=== PATIENT | female | born 1950 | race Caucasian/White ===

== ENCOUNTER 2021-12-09 05:56 | Day surgery (SDC) | payer MEDICARE, SELFPAY ==
[2021-12-01 09:11] LABS: Hematocrit 44.9 % (37-47); Hemoglobin 14.8 g/dL (12.0-15.0); Mean Corpuscular Hgb 32.1 pg (27.0-32.0); Mean Corpuscular Volume 97.4 fL (81-99); Mean Platelet Vol. 9.8 fl (6.2-12.0); Platelet Count 242 K/mm3 (150-450); RBC Distribution Width CV 12.7 % (11.6-14.6); RBC Distribution Width SD 45.3 fl (35.1-43.9); Red Blood Count 4.61 M/mm3 (4.2-5.4)
[2021-12-01 09:17] LABS: Prothrombin Time (Protime)PT. 12.5 SECONDS (11.7-14.9)
[2021-12-01 09:18] LABS: Partial Thromboplast Time 26.4 Seconds (24.1-36.2)
[2021-12-01 09:45] LABS: Anion Gap 5 (5-15); BUN 20 mg/dL (7-18); BUN/Creat Ratio 24.5 RATIO (10-20); Calcium,Total 9.4 mg/dL (8.5-10.1); Chloride 104 mmol/L (98-107); Creatinine, Serum 0.82 mg/dL (0.55-1.02); EST Glomerular Filtration Rate 73 mL/min (>60); Est Glom Filt Rate - Afr Amer 88 mL/min (>60); Glucose 95 mg/dL (74-106); Sodium Level 139 mmol/L (136-145); Thyroid Stim Hormone (TSH) 1.93 uIU/mL (0.358-3.74)
[2021-12-09] VITALS (7 sets, daily range): BP systolic 111–162; BP diastolic 33–76; PULSE 62–89; RESP 16–18; TEMP 36.2–36.7; O2SAT 92–98; BMI 29.4
--- NOTE | 2021-12-09 | IMM_PTH ---
PATIENT: BARBI RAMIREZ LOC: [facility] [place] U#:[id number] AGE/SX: 71/F ROOM: RE12/09/[address]: Dr. Craig Ordoñez DO : 1950 BED: DIS: 12/09/2021 SPEC #: [id number] RECD: 12/10/21 12:34 STATUS: JAVIER REQ #: [id number] HARIS: 12/09/21 00:[address]: Craig Ordoñez DEPT: IMMUNOHISTOCHEMISTRY RECD BY: Luisa Campos ENTERED: 12/10/21 12:36 SP TYPE: IMMUNO OTHR DR: Dr. Craig Parmar MD Tissues: Vertebra, NOS Procedures: SMA (add) CD34 (add) DESMIN (add) ODALIS (add) MACRO (add) P53 (add) Vimentin (add) Pankeratin (initial) PHYSICIAN & INSTITUTION [place] [id number] SPECIMEN INFORMATION: Tissue Source: Extradural soft tissue mass, L5-S1, biopsy Clinical Info: Spinal stenosis lumbar region, spondylosis with radiculopathy, inflammatory spondylopathy Specimen Number: [id number] CPT code: 02813, 09263 x7 METHODOLOGY: Deparaffinized sections of prefer/formalin-fixed tissue or PAP/DQ stained slides are incubated with monoclonal/polyclonal antibodies/oligonucleotide probes. Localization is made via biotin free immunoperoxidase method. Appropriate controls are performed and reacted as expected. Results on target cell population are indicated in the following table: RESULTS: ANTIBODY / CLONE RESULT AE1-3 (AE1/AE3/PCK26) negative Vimentin (V9) positive CD34 (QBEnd-10) negative Macro (HAM-56) positive, focal Actin (1A4) negative Desmin (CE-R-11) negative ODALIS (E29) negative P53 (DO-7) negative These tests were developed and their performance characteristics determined by [facility]. They may not have been cleared or approved by the U.S. Food and Drug Administration. The FDA has determined that such clearance or approval is not necessary. The above immunohistochemical/dualISH markers are ordered and reviewed by the Pathologist. INTERPRETATION: Extradural soft tissue mass, L5-S1, biopsy: Benign fibrous tissue. AM:annalisa 12/13/2021
[2021-12-09] MEDS: Lactated Ringers 1,000 ML 15 ML IV (06:15)
--- NOTE | 2021-12-09 07:30 | MASS_PTH ---
PATIENT: BARBI RAMIREZ LOC: [facility] [place] U#:[id number] AGE/SX: 71/F ROOM: RE12/09/[address]: Dr. Craig Ordoñez DO : 1950 BED: DIS: 12/09/2021 SPEC #: [id number] RECD: 12/09/21 10:15 STATUS: JAVIER RECandi #: [id number] HARIS: 12/09/21 07:[address]: Craig Ordoñez DEPT: SURGICAL PATHOLOGY RECD BY: Ariane Moody ENTERED: 12/09/21 11:30 SP TYPE: Mass OTHR DR: Dr. Craig Parmar MD Tissues: CYST Procedures: Surgery Specimen Level V HEADER OPERATION: Lumbar 5 laminectomy decompression, excision of L5-S1 facet PRE-OP DIAGNOSIS: Spinal stenosis lumbar region, spondylosis with radiculopathy, intervertebral disc degeneration, inflammatory spondylopathy, spondylolisthesis TISSUE SUBMITTED: Extradural mass, probable L5-S1 facet cyst MICROSCOPIC DIAGNOSIS Extradural soft tissue mass, L5-S1, biopsy: Fragments of fibrous tissue with benign histiocytic reaction and mild chronic inflammation. Focal fibrinoid material. No evidence of malignancy. See comment. AM:annalisa 12/10/2021 COMMENT Immunohistochemistry ([id number]) supports the above diagnosis. MICROSCOPIC DESCRIPTION Slides are reviewed. GROSS DESCRIPTION Received in fixative is one container labeled with the patient's name and designated extradural mass, probable L5-S1 facet cyst. The specimen consists of multiple irregular fragments of nur-pink soft tissue that in aggregate measure 0.7 x 0.9 x 0.2 cm. The specimen is totally submitted in one cassette. / SJ:annalisa 12/09/2021 TC:5 CPT: 82138
--- NOTE | 2021-12-09 07:30 | RAD_ITS ---
PROCEDURE: Localization for laminectomy. DATE OF EXAMINATION: 12/09/2021. INDICATION: Female, 71 years old. Laminectomy. 2 intraoperative images were obtained. RAD/Spine 1 View Any Level IMPRESSION: Intraoperative imaging provided for localization. The localization instrument is at the L5-S1 level. Electronically Signed: Manuel Jacques MD at 10:12 EST ,
[2021-12-09] MEDS: Cefazolin 2 GM in 0.9% Normal Saline 100 ML IV (07:56)
[2021-12-09] MEDS: THROMBIN (RECOMBINANT) 20,000 UNIT VIAL 20000 UNIT TOPICAL (08:00)
--- NOTE | 2021-12-09 08:00 | PCM.OPRPT ---
Problems Associated Problem List Diagnoses (1) Lumbar stenosis: Report of Operation Date of Procedure: 12/09/21 Pre-Operative Diagnosis: 1. Lumbar stenosis L5-S1 with spondylosis 2. Left L5-S1 facet cyst Post-Operative Diagnosis: 1. Lumbar stenosis L5-S1 with spondylosis 2. Left L5-S1 facet cyst Surgery/Procedure Performed:: 1. L5 laminectomy decompression 2. Bilateral L5-S1 foraminotomies 3. Excision of extradural mass, left L5-S1 facet cyst Description of Surgical Findings:: The patient is a 71-year-old female with intractable back and leg pain. Image studies confirm the above diagnosis. She has failed conservative treatment to include medication, physical therapy and injections. The patient opted for operative intervention understanding the risks to include but not limited to infection, bleeding, damage to nerves arteries and veins, possibility of spinal fluid leak, continued pain, need for further surgery, deep vein thrombosis, pulmonary embolism, heart attack, stroke or . The patient was identified in the preoperative holding area. There she received preoperative IV antibiotics Ancef and was then transferred to the operative suite. Once in the operative suite after general endotracheal anesthesia was established the patient was transferred to the [facility] operating table in the prone position. All bony prominences were padded accordingly. The lumbar spine was prepped and draped in a standard surgical fashion. A midline incision was made and taken down to the level of the lumbodorsal fascia. The fascia was then divided and subperiosteal dissection was taken down to the level of the bilateral L5-S1 facet joints. Deep retractors were placed. A bone scalpel was used to make laminotomy cuts bilaterally at L5. Then a series of rongeurs and Kerrisons was used to remove the spinous process and lamina of L5. At this point bilateral foraminotomies were performed using a Kerrison. A large extradural mass was noted at the left L5-S1 facet joint. This was excised and sent to pathology. All bleeding was well controlled. The wound was thoroughly irrigated with normal saline solution. Tisseel was placed over the dura as a hemostatic agent. The fascia was closed with #1 Vicryl, subcutaneous with 2-0 Vicryl, and skin with 2-0 nylon. A sterile dressing was applied with 4 x 4's ABD and tape. Sponge instrument needle counts were correct at the end of the case. The patient was extubated and taken to the PACU without incident. Surgeon: Craig Ordoñez Type of Anesthesia: General Specimen's removed: Extradural mass, left L5-S1 facet cyst Drains: None Estimated Blood Loss (mL): 10 cc Fluids Replaced: 1250 cc Complications None Admit VTE Documentation VTE Present on Admission: No
--- NOTE | 2021-12-09 08:00 | PCM.PN.ORT ---
Subjective Subjective The patient was seen and examined postoperatively in the PACU. She is resting comfortably. Her pain is controlled. She denies any complaints including numbness tingling or weakness. Objective Data Objective Data Vital Signs: Vital Signs Temp Pulse Resp BP Pulse Ox 98.1 F 89 18 162/71 H 98 12/09/21 06:20 12/09/21 06:20 12/09/21 06:20 12/09/21 06:20 12/09/21 06:20 Oxygen Delivery Method Room Air Weight: 160 lb 14.999 oz Body Mass Index (BMI) 29.4 Lab / Micro Data Result Diagrams: 12/01/21 08:24 12/01/21 08:24 Physical Exam Const alert, oriented x3 and no apparent distress General Appearance: cooperative and comfortable HEENT head/scalp atraumatic Eyes EOMs intact bilaterally and conjunctivae normal Neck full ROM General: normal visual inspection Chest inspection of chest normal Resp normal respiratory effort and normal air movement Cardio regular rate, regular rhythm and peripheral pulses 2+ throughout Peripheral Pulses: pulses 2+ throughout GI soft to palpation, non-tender and non-distended Back/Spine Back/Spine Narrative: Dressing clean dry and intact Cervical Spine: cervical ROM normal Thoracic Spine / Upper Back: normal to inspection Lumbar Spine / Lower Back: normal to inspection Extremity normal to inspection, full ROM, normal capillary refill, no clubbing, cyanosis or edema and no calf tenderness Peripheral Pulses: Yes pulses 2+ throughout Skin no rashes or lesions noted General Skin Exam: no breakdown Neuro oriented x3, CN's II-XII intact bilaterally, moves all extremities, no focal motor deficits, no sensory deficits noted and deep tendon reflexes 2+ bilaterally Motor Exam: strength 5/5 throughout and muscle tone normal throughout Assessment & Plan Assessment/Plan (1) Lumbar stenosis: PLAN: Okay to discharge home See discharge instructions Follow-up with Dr. Ordoñez in 3 weeks for suture removal
[2021-12-09] MEDS: Bupivacaine 0.25% 30 ML Vial (09:46)
[2021-12-09] MEDS: HYDROcodone Bitartrate/Apap 5/325 Tablet PO (11:15)
== END 2021-12-09 23:59 | disposition home or self-care (01) ==
LOC: SDC 05:57 → AC 05:58
PROVIDERS: PCP Family Medicine; Referring Provider Orthopaedic Surgery; Visit Provider Orthopaedic Surgery
PROC: (CPT 63030; principal; 2021-12-09 07:00)
DX: M48.07 Spinal stenosis, lumbosacral region (principal); M48.8X7 Other specified spondylopathies, lumbosacral region; M46.96 Unspecified inflammatory spondylopathy, lumbar region; M48.061 Spinal stenosis, lumbar region without neurogenic claudication; M47.26 Other spondylosis with radiculopathy, lumbar region; E66.3 Overweight; Z68.29 Body mass index [BMI] 29.0-29.9, adult; M51.36 Other intervertebral disc degeneration, lumbar region; J45.909 Unspecified asthma, uncomplicated; K21.9 Gastro-esophageal reflux disease without esophagitis; E07.9 Disorder of thyroid, unspecified; Z79.899 Other long term (current) drug therapy; Z79.82 Long term (current) use of aspirin
CPT/HCPCS: 63047; 63048; 63267; 00630; 36415; 72020; 76000; 80048; 84443; 85027; 85610; 85730; 88304; 88307; 88341; 88342; J7120; J0330; J2405

== ENCOUNTER 2024-02-15 09:52 | Day surgery (SDC) | payer BC, SELFPAY ==
--- NOTE | 2024-02-15 | LES_PTH ---
PATIENT: BARBI RAMIREZ LOC: [facility] [place] U#:[id number] AGE/SX: 73/F ROOM: RE02/15/[address]: Dr. Delma Suggs MD : 1950 BED: DIS: 02/15/2024 SPEC #: [id number] RECD: 02/15/24 13:31 STATUS: JAVIER DECKER #: [id number] HARIS: 02/15/24 00:[address]: Delma Suggs DEPT: SURGICAL PATHOLOGY RECD BY: Joel Cooper ENTERED: 02/15/24 13:31 SP TYPE: Lesion OTHR DR: Dr. Craig Parmar MD Tissues: Skin of face, NOS Procedures: Surgery Specimen Level IV HEADER OPERATION: Excision lesion left cheek (1.5cm) with intermediate closure PRE-OP DIAGNOSIS: Neoplasm of uncertain behavior of skin of face TISSUE SUBMITTED: Lesion left cheek of face MICROSCOPIC DIAGNOSIS Lesion left cheek face, excisional biopsy: Solar elastosis. Acute and chronic inflammation and foreign body giant cell reaction. See comment. [facility] 02/16/24 COMMENT The lesion may represent ruptured epidermal inclusion cyst. MICROSCOPIC DESCRIPTION Slides are reviewed. GROSS DESCRIPTION Received in fixative is one container labeled with the patient's name and designated Lesion left cheek of face. The specimen consists of a piece of nur white skin in ellipse measuring 1.0 x 0.5 x 0.1cm. The specimen is inked, serially sectioned and submitted entirely in one cassette. / 02/15/24 TC:5 CPT: 88188
[2024-02-15 10:29] VITALS: BP 131/63; PULSE 68; RESP 16; TEMP 36.7; O2SAT 96; BMI 28.6
--- NOTE | 2024-02-15 11:23 | PCM.HP.BLA ---
History and Physical Date of Admission: 02/15/24 The patient is examined and there are no changes to the history and physical dated 01/23/2024. She presents for lesion of the left cheek which we will excised and submitted for pathologic evaluation. Assessment & Plan Assessment/Plan (1) Neoplasm of uncertain behavior of skin of face: PLAN: Plan We will proceed with excision lesion left cheek
[2024-02-15 11:40] VITALS: BP 123/64; BP 125/58; BP 130/59; BP 135/63; BP 139/67; BP 139/73; BP 148/69; O2SAT 90; O2SAT 91; O2SAT 92; O2SAT 93; O2SAT 95
[2024-02-15] MEDS: Lidocaine 1% /Epi 1:100 9 ML, Sodium Bicarbonate 1 MEQ OPERA.SITE (12:00)
--- NOTE | 2024-02-15 12:18 | DCINST_ITS ---
Discharge Instructions Dressing / Incision Additional Dressing/Incision Instructions:: Keep your back elevated (recliner position) for the next 3 nights to help reduce swelling and bruising. Take the oral antibiotic (Keflex) 2 times a day until finished. Keep the Steri-Strips dry and in place until seen in the office. Follow Up Care Please Follow Up With: Delma Suggs MD When: 1 to 2 weeks Test Results: Test results from this visit will be discussed in further detail at your follow- up appointment, if applicable. Discharge Plan Admission Attending Provider: Delma Suggs Primary Care Provider: Craig Parmar Discharge Orders/Prescriptions Prescriptions: New cephalexin 500 mg capsule 500 mg PO BID 5 Days Qty: 10 0RF No Action aspirin 81 mg capsule 81 mg PO DAILY atorvastatin 10 mg tablet 10 mg PO DAILY multivitamin Tablet 1 tab PO DAILY levothyroxine 88 mcg tablet 88 mcg PO DAILY Patient Comments: takes half pill on Sundays hydrocortisone acetate 30 mg Suppository 30 mg MT PRN PRN (Reason: HEMORROIDS) omeprazole 20 mg Capsule,Delayed Release(Dr/Ec) 20 mg PO DAILY albuterol sulfate 90 mcg/actuation HFA aerosol inhaler 2 puff INHALATION PRN PRN (Reason: ASTHMA) ibandronate [Boniva] 150 mg tablet 150 mg PO QMONTH calcium carbonate-vitamin D3 500 mg-3.125 mcg (125 unit) Tablet 1 tab PO DAILY lisinopril 10 mg Tablet 10 mg PO DAILY gabapentin 100 mg capsule 100 mg PO BID Patient Comments: pt takes 100mg morning and afternoon. gabapentin 100 mg capsule 200 mg PO QHS Referrals / Follow Up: Craig Parmar MD [Primary Care Provider] - Disposition Disposition (needs filled in before D/C Order can be placed): Home, Self Care
--- NOTE | 2024-02-15 12:21 | PCM.OPRPT ---
Problems Associated Problem List Diagnoses (1) Neoplasm of uncertain behavior of skin of face: Report of Operation Date of Procedure: 02/15/24 Pre-Operative Diagnosis: Neoplasm left cheek Post-Operative Diagnosis: Same Surgery/Procedure Performed:: Excision neoplasm left cheek (1.3 cm) with intermediate closure Surgeon: Delma Suggs Type of Anesthesia: Local Specimen's removed: Neoplasm cheek Estimated Blood Loss (mL): Minimal Description of Procedure: The patient presents with a neoplasm of the left cheek which has not resolved. She presents for excision of the lesion with submission for pathologic evaluation. The patient is brought to the operating room and placed on the operating room table in supine position. The left cheek is prepped and draped in the usual sterile fashion. 1% Xylocaine with epinephrine is used for local anesthetic. Following this, the lesion is elliptically excised and passed off the operative field to be sent to pathology. Hemostasis is controlled with cautery. The wound is then closed in layers using a Vicryl suture in the subcutaneous tissue and dermis. Skin edges are approximated with a running subcuticular Vicryl suture. Further refinement of the closure was performed with a fast-absorbing gut suture. Dermabond and Steri-Strips were placed on the incision. She tolerated the procedure well was taken to the recovery area in an awake and stable condition. Needle and sponge counts are correct. Complications None Admit VTE Documentation VTE Mechan Device Prophylaxis: None Reason prophylaxis not ordered:: Treatment Not Indicated
[2024-02-15 12:35] VITALS: BP 126/71; PULSE 58; RESP 16; TEMP 37; O2SAT 93
== END 2024-02-15 12:48 | disposition home or self-care (01) ==
LOC: SDC 09:55 → AC 10:01
PROVIDERS: PCP Family Medicine; Referring Provider Family Medicine; Visit Provider Plastic Surgery
PROC: (CPT 11442; principal; 2024-02-15 12:05)
DX: L92.3 Foreign body granuloma of the skin and subcutaneous tissue (principal); L57.8 Other skin changes due to chronic exposure to nonionizing radiation; L08.9 Local infection of the skin and subcutaneous tissue, unspecified; Z79.899 Other long term (current) drug therapy; Z79.82 Long term (current) use of aspirin; J45.909 Unspecified asthma, uncomplicated; I10 Essential (primary) hypertension
CPT/HCPCS: 11442; 12051; 00300; 88305